=== PATIENT | female | born 2000 | race Caucasian/White ===

== ENCOUNTER 2020-03-14 10:10 | Emergency (ER) | payer BC ==
[2020-03-14 10:29] VITALS: BP 131/80; PULSE 86
[2020-03-14 11:04] LABS: ANION GAP 15.9 mEq/L (7-13); CHLORIDE,CL 102 mmol/L (98-107); SODIUM,NA 139 mmol/L (136-145)
--- NOTE | 2020-03-14 11:25 | EDM.PDOC ---
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 Last night she started spotting and this morning she had a large amount of blood and pain in the lower abdomen. In May 2019 she had a miscarriage. Onset Date: 03/13/20 Duration: Getting Worse Location: Reports: Abdomen Quality: Reports: Ache Severity: Moderate Improves with: Reports: None Worsens with: Reports: None Associated Symptoms: Reports: No Other Symptoms Lower Abdomen Pain Score (Numeric/FACES): 10 - Related Data Allergies Allergy/AdvReac Type Severity Reaction Status Date / Time aloe vera Allergy Rash Verified 03/14/20 10:34 Home Meds: Home Meds . [No Known Home Meds] 11/11/15 [History] Past Medical History HEENT History: Reports: None Cardiovascular History: Reports: None Respiratory History: Reports: None Gastrointestinal History: Reports: None Genitourinary History: Reports: None ENGLISH LECTURER History: Reports: None Musculoskeletal History: Reports: None Neurological History: Reports: None Psychiatric History: Reports: None Endocrine/Metabolic History: Reports: None Hematologic History: Reports: None Immunologic History: Reports: None Oncologic (Cancer) History: Reports: None Dermatologic History: Reports: None - Infectious Disease History Infectious Disease History: Reports: None - Past Surgical History Musculoskeletal Surgical History: Reports: Other (See Below) Social & Family History - Family History Family Medical History: Noncontributory ED ROS GENERAL - Review of Systems Review Of Systems: Comprehensive ROS is negative, except as noted in HPI. ED EXAM - Physical Exam Exam: See Below Exam Limited By: No Limitations General Appearance: Alert, WD/WN, No Apparent Distress Respiratory/Chest: No Respiratory Distress, Lungs Clear, Normal Breath Sounds, No Accessory Muscle Use, Chest Non-Tender Cardiovascular: Normal Peripheral Pulses, Regular Rate, Rhythm, No Edema, No Gallop, No JVD, No Murmur, No Rub GI/Abdominal Exam: Normal Bowel Sounds, Soft, No Organomegaly, Tender (left lower quadrant with positive bowel sounds. ). No: Distended, Guarding, Rebound Back Exam: Normal Inspection, Full Range of Motion, NT Extremities: Normal Inspection, Normal Range of Motion, Non-Tender, Normal Capillary Refill, No Pedal Edema Neurological: Alert, Oriented, CN II-XII Intact, Normal Cognition, Normal Gait, Normal Reflexes, No Motor/Sensory Deficits Psychiatric: Normal Affect, Normal Mood Skin Exam: Warm, Dry, Intact, Normal Color, No Rash Course - Vital Signs Text/Narrative:: CBC, cmp, and urine normal. Her HCG serum is negative. 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 Dr. Santos, felt with the negative HCG; most likely her pain is related to contraction of the uterus and not retained tissues. She will f/u if symptoms worsen Last Recorded V/S: Last Vital Signs Temp 96.7 F L 03/14/20 10:22 Pulse 86 03/14/20 10:22 Resp 20 03/14/20 10:22 BP 131/80 03/14/20 10:22 Pulse Ox 100 03/14/20 10:22 - Orders/Labs/Meds Orders: Active Orders 24 hr Category Date Time Status CULTURE URINE [RM] Stat Lab 03/14/20 10:15 Received Labs: Laboratory Tests 03/14/20 03/14/20 03/14/20 Range/Units 10:15 10:15 10:30 WBC (5.0-10.0) 10^3/uL RBC (4.2-5.4) 10^6/uL Hgb (12.0-16.0) g/dL Hct (37.0-47.0) % MCV (80-100) fL MCH (27.0-34.0) pg MCHC (33.0-35.0) g/dL Plt Count (150-450) 10^3/uL Sodium (136-145) mmol/L Potassium (3.5-5.1) mmol/L Chloride (98-107) mmol/L Carbon Dioxide (21-32) mmol/L Anion Gap (7-13) mEq/L BUN (7-18) mg/dL Creatinine (0.55-1.02) mg/dL Est Cr Clr Drug Dosing mL/min Estimated GFR (MDRD) BUN/Creatinine Ratio (No establ ref range) Glucose (74-99) mg/dL Calcium (8.5-10.1) mg/dL Total Bilirubin (0.2-1.0) mg/dL AST (15-37) U/L ALT (14-59) U/L Alkaline Phosphatase (46-116) U/L Total Protein (6.4-8.2) g/dL Albumin (3.4-5.0) g/dL Globulin Albumin/Globulin Ratio HCG, Qual Negative Urine Color Cancelled Yellow Urine Appearance Cancelled Cloudy Urine pH Cancelled 5.5 Ur Specific [place] Cancelled >= 1.030 Urine Protein Cancelled 30 H Urine Glucose (UA) Cancelled Negative Urine Ketones Cancelled Negative Urine Occult Blood Cancelled Large H Urine Nitrite Cancelled Negative Urine Bilirubin Cancelled Negative Urine Urobilinogen Cancelled 0.2 Ur Leukocyte Esterase Cancelled Trace H U Hyaline Cast (Auto) Cancelled Urine RBC Cancelled >100 H Urine WBC Cancelled 5-10 H Ur Epithelial Cells Cancelled Few Calcium Phosphate Cryst Cancelled Calcium Oxalate Crystal Cancelled Uric Acid Crystals Cancelled Triple Phos Crystals Cancelled Other Crystals Cancelled Amorphous Sediment Cancelled Urine Bacteria Cancelled Few Hyaline Casts Cancelled Granular Casts Cancelled Granular Casts (Auto) Cancelled Fine Granular Casts Cancelled Coarse Granular Casts Cancelled Urine Mucus Cancelled Rare Urine Other Cancelled Urine Trichomonas Cancelled Urine Yeast Cancelled Urinalysis Comment Cancelled 03/14/20 03/14/20 Range/Units 10:30 10:30 WBC 11.4 H (5.0-10.0) 10^3/uL RBC 4.81 (4.2-5.4) 10^6/uL Hgb 13.4 (12.0-16.0) g/dL Hct 40.1 (37.0-47.0) % MCV 83.4 (80-100) fL MCH 27.9 (27.0-34.0) pg MCHC 33.4 (33.0-35.0) g/dL Plt Count 364 (150-450) 10^3/uL Sodium 139 (136-145) mmol/L Potassium 3.9 (3.5-5.1) mmol/L Chloride 102 (98-107) mmol/L Carbon Dioxide 25 (21-32) mmol/L Anion Gap 15.9 H (7-13) mEq/L BUN 7 (7-18) mg/dL Creatinine 0.81 (0.55-1.02) mg/dL Est Cr Clr Drug Dosing 94.87 mL/min Estimated GFR (MDRD) > 60 BUN/Creatinine Ratio 8.6 (No establ ref range) Glucose 96 (74-99) mg/dL Calcium 8.3 L (8.5-10.1) mg/dL Total Bilirubin 0.2 (0.2-1.0) mg/dL AST 15 (15-37) U/L ALT 28 (14-59) U/L Alkaline Phosphatase 62 (46-116) U/L Total Protein 7.8 (6.4-8.2) g/dL Albumin 3.7 (3.4-5.0) g/dL Globulin 4.1 Albumin/Globulin Ratio 0.9 HCG, Qual Urine Color Urine Appearance Urine pH Ur Specific [place] Urine Protein Urine Glucose (UA) Urine Ketones Urine Occult Blood Urine Nitrite Urine Bilirubin Urine Urobilinogen Ur Leukocyte Esterase U Hyaline Cast (Auto) Urine RBC Urine WBC Ur Epithelial Cells Calcium Phosphate Cryst Calcium Oxalate Crystal Uric Acid Crystals Triple Phos Crystals Other Crystals Amorphous Sediment Urine Bacteria Hyaline Casts Granular Casts Granular Casts (Auto) Fine Granular Casts Coarse Granular Casts Urine Mucus Urine Other Urine Trichomonas Urine Yeast Urinalysis Comment Departure - Departure Time of Disposition: 11:25 Disposition: Home, Self-Care 01 Preliminary Cause of *Q: Cardiac Arrest Condition: Good Clinical Impression: Miscarriage Abdominal pain Qualifiers: Abdominal location: left lower quadrant Qualified Code(s): R10.32 - Left lower quadrant pain - Discharge Information Instructions: Abdominal Pain During , [id number] Referrals: PCP,None [Primary Care Provider] - Forms: ED Department Discharge Additional Instructions: Follow up with your integration assistant or PCP next week. If pain worse in next 24 hours; or bleeding worse; return to ER Sepsis Event Note (ED) - Evaluation Sepsis Screening Result: No Definite Risk - Focused Exam Vital Signs: Vital Signs Temp Pulse Resp BP Pulse Ox 03/14/20 10:22 96.7 F L 86 20 131/80 100 - My Orders Last 24 Hours: My Active Orders 03/14/20 10:15 CULTURE URINE [RM] Stat - Assessment/Plan Last 24 Hours: My Active Orders 03/14/20 10:15 CULTURE URINE [RM] Stat I have read and agree with the documentation that has been completed regarding this visit. By signing this record, I attest that the documentation was completed in my physical presence and is an accurate record of the encounter.
== END 2020-03-14 11:33 | disposition home or self-care (01) ==
LOC: DL.ED 10:10
DX: O03.9 Complete or unspecified spontaneous abortion without complication (principal); Z91.048 Other nonmedicinal substance allergy status
CPT/HCPCS: 36415; 80053; 81001; 84703; 85027; 87086; 87088; 87186; 99283; 99284